=== PATIENT | female | born 2000 | race Two or more races ===

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

== ENCOUNTER 2020-12-28 15:50 | Emergency (ER) | payer OTHER ==
[~2020-12-28] VITALS: Ht 152.4 cm; Wt 54.4 kg
[2020-12-28] MEDS ORDERED: ZITHROMAX TRI-500 MG PO (18:01)
[2020-12-28] MEDS ORDERED: TUSICOF CAPLET1 EACH PO (18:01)
== END 2020-12-28 18:25 | disposition home or self-care (01) ==
LOC: EMR PED 15:50
DX: J06.9 Acute upper respiratory infection, unspecified (principal); R07.0 Pain in throat; Z11.52 Encounter for screening for COVID-19

== ENCOUNTER 2021-09-28 20:32 | Inpatient (IN) | payer OTHER ==
[~2021-09-28] VITALS: Ht 152.4 cm; Wt 56.8 kg
[~2021-09-28 20:32] MED LIST changes: +TUSICOF CAPLET1 EACH PO; +ZITHROMAX TRI-500 MG PO
== END 2021-10-02 11:12 | disposition home or self-care (01) | DRG 758 ==
LOC: EMR PED 20:32 → SEC-K 09-29 13:50 → PED 09-29 13:50 → SEC-K 09-29 15:04 → PED 09-29 15:14
PROVIDERS: ADMIT Emergency Medicine; ATTEND Emergency Medicine
PROC: BW21YZZ Computerized Tomography (CT Scan) of Abdomen and Pelvis using Other Contrast (ICD-10-PCS; 2021-09-28)
PROC: BU4CZZZ Ultrasonography of Uterus and Ovaries (ICD-10-PCS; principal; 2021-09-29)
PROC: BW4GZZZ Ultrasonography of Pelvic Region (ICD-10-PCS; 2021-09-29)
DX: N73.0 Acute parametritis and pelvic cellulitis (principal); A54.24 Gonococcal female pelvic inflammatory disease; D50.9 Iron deficiency anemia, unspecified; E86.0 Dehydration; N93.8 Other specified abnormal uterine and vaginal bleeding; Z20.822 Contact with and (suspected) exposure to COVID-19

== ENCOUNTER 2025-03-02 09:38 | Emergency (ER) | payer OTHER ==
[~2025-03-02] VITALS: Ht 152.4 cm; Wt 54.4 kg
[2025-03-02] MEDS ORDERED: FAMOtidine 10 MG/ML (4ML VIAL) IV PUSH ONE (10:00)
[2025-03-02] MEDS ORDERED: ONDANSETRON HCL 2 MG/ML VIAL IV ONE (10:00)
[2025-03-02 10:31] LABS: BASO % 0.7 % (0.1-1.2); EOS # 0.07 (0.04-0.54); EOS % 1.0 % (0.7-7.0); LYMPH # 1.69 (1.18-3.74); LYMPH % 23.8 % (19.3-53.1); MEAN PLATELET VOLUME 9.50 fl (9.4-12.4); MONO # 0.40 (0.24-0.82); MONO % 5.6 % (4.7-12.5); NEUT # 4.88 (1.56-6.13); NEUT % 68.8 % (34.0-71.1); RED CELL DISTRIBUTION WIDTH 13.1 % (11.6-14.4)
[2025-03-02 11:03] LABS: ALT/SGPT 18.0 U/L (12-78); AST/SGOT 11.0 U/L (15-37); BILIRUBIN TOTAL 0.59 mg/dL (0.3-1.2); BUN CREA RATIO 15.0 (7.0-25.0); CREATININE SERUM 0.71 mg/dL (0.55-1.02); GFR 101.13; GLOBULINA 4.2 G/DL (2.4-3.5); GLUCOSE FASTING 91.0 mg/dL (65-100); OSMOLALITY SERUM 284.0 MOSM/KG (275-295)
[2025-03-02 11:23] LABS: COVID-19 AG NEGATIVE (NEGATIVE)
[2025-03-02] MEDS ORDERED: PEPCID AC20 MG PO (12:58)
[2025-03-02] MEDS ORDERED: ZOFRAN8 MG PO (12:58)
== END 2025-03-02 13:08 | disposition home or self-care (01) ==
LOC: ER 09:38
PROVIDERS: General Practice
DX: K52.89 Other specified noninfective gastroenteritis and colitis (principal); Z20.822 Contact with and (suspected) exposure to COVID-19